=== PATIENT | female | born 1995 | race Caucasian/White ===

== ENCOUNTER → 2017-12-08 | Outpatient (CLI) | payer BC ==
[~2017-12-08] MED LIST: CEPH500C PO; ONDAN4ODT PO
--- NOTE | 2017-12-08 19:21 | Diagnostic Imaging Report ---
INDICATION: Bilateral breast pain and bilateral breast lumps. Bilateral MLO views were performed. The current study was also evaluated with a Computer Aided Detection (CAD) system. FINDINGS: Scattered fibroglandular densities are noted. No mass is detected. No malignant appearing microcalcifications are seen. The axillae are unremarkable. IMPRESSION: No suspicious mammographic abnormality is identified. Continued close clinical and self-breast exam is recommended to confirm stability of the palpable abnormalities. ACR BI-RADS Category 1: Negative. Result letter will be mailed to the patient. Note: At least 10% of breast cancer is not imaged by mammography. Dictated by: Dictated on workstation # [id number]
--- NOTE | 2017-12-08 19:51 | Diagnostic Imaging Report ---
INDICATION: Bilateral breast pain and bilateral breast lumps. FINDINGS: Sonographic interrogation of the area of lumps in bilateral breasts was performed. No solid or cystic masses are seen. No sonographic abnormality is identified. IMPRESSION: No sonographic abnormality is identified. Bilateral MLO diagnostic mammography is recommended for further evaluation and will be performed today. ACR BI-RADS Category 0: Incomplete. (Needs additional imaging evaluation). Dictated by: Dictated on workstation # [id number]
== END ==
LOC: RAD 14:15
PROVIDERS: ATTEND Family Medicine
DX: N60.02 Solitary cyst of left breast (principal); N60.01 Solitary cyst of right breast
CPT/HCPCS: 77066